=== PATIENT | female | born 1975 ===

== ENCOUNTER 2021-07-15 15:39 | Emergency (ER) | payer OTHER, SELFPAY ==
[2021-07-15 15:47] VITALS: BP 142/90; PULSE 80; RESP 16; TEMP 36.6; O2SAT 100
--- NOTE | 2021-07-15 15:50 | ECG_ITS ---
Measurements Intervals [place] Rate: 73 P: 60 IL: 170 QRS: -25 QRSD: 97 T: 40 QT: 379 QTc: 419 Interpretive Statements SINUS RHYTHM WITH SINUS ARRHYTHMIA CANNOT RULE OUT SEPTAL INFARCT, AGE INDETERMINATE ABNORMAL ECG Electronically Signed On 07-15-2021 19:14:21 RESOURCING CONSULTANT by Pablo Yip D.O.
--- NOTE | 2021-07-15 16:07 | PC.NURSE ---
pt talking with myself about fear of being in ed with active covid. made aware that any er will always have active covid. pt states will be in touch with pmd to obtain ekg results and for further testing.
== END 2021-07-16 03:19 | disposition left against medical advice (07) ==
PROVIDERS: Emergency Provider Emergency Medicine
DX: R10.10 Upper abdominal pain, unspecified (principal)
CPT/HCPCS: 93005; 99199